=== PATIENT | female | born 1975 | race Caucasian/White ===

== ENCOUNTER 2019-12-20 14:58 | Emergency (ER) | payer OTHER ==
[~2019-12-20] VITALS: Ht 162.6 cm; Wt 111.1 kg
[~2019-12-20 14:58] MED LIST: ACETAMINOPHEN-1 EAC1 PO; CELEXA 20 MG TA20 MG PO; DESYREL50 MG PO; FLEXERIL; GABAPENTIN100 MG PO; VITAMIN D2000 UNIT; VITAMINC500; ZANAFLEX4 M1 PO
[2019-12-20] MEDS ORDERED: NORCO 5-325 TA1 EAC1 PO (15:49)
[2019-12-20 16:49] VITALS: BP 119/76
== END 2019-12-20 16:50 | disposition home or self-care (01) ==
LOC: M.ERS 14:58
DX: S00.83XA Contusion of other part of head, initial encounter (principal); M79.7 Fibromyalgia; Z88.6 Allergy status to analgesic agent; Z88.8 Allergy status to other drugs, medicaments and biological substances; V49.49XA Driver injured in collision with other motor vehicles in traffic accident, initial encounter; Y93.89 Activity, other specified; Y92.89 Other specified places as the place of occurrence of the external cause; Y99.8 Other external cause status